=== PATIENT | male | born 1955 | race Caucasian/White ===

== ENCOUNTER 2019-01-15 14:48 | Emergency (ER) | payer OTHER ==
[~2019-01-15] VITALS: Ht 180.3 cm; Wt 81.6 kg
[~2019-01-15 14:48] MED LIST: HUMALOG MI100 UNIT/2; LANTUS SOL100 UNIT/1
== END 2019-01-15 18:47 | disposition home or self-care (01) ==
LOC: ER 14:48
DX: L02.511 Cutaneous abscess of right hand (principal)